=== PATIENT | male | born 1980 | race Caucasian/White ===

== ENCOUNTER 2019-03-18 16:38 | Emergency (ER) | payer OTHER ==
--- NOTE | 2019-03-18 16:47 | PDOC ---
Rapid Medical Evaluation Time Seen by Provider: 03/18/19 16:45 Medical Evaluation: 03/18/19 16:45 I have performed a brief in-person evaluation of this patient. The patient presents with a chief complaint of: resolved dizziness and vomiting Pertinent physical exam findings: no focal findings I have ordered the following: ekg The patient will proceed to the ED for further evaluation. 03/18/19 16:47 Discharge Disposition - Diagnosis Episode of dizziness - Referrals - Patient Instructions - Post Discharge Activity
[2019-03-18 16:48] VITALS: BP 132/68; PULSE 60; TEMP 98.2; BMI 22.5
--- NOTE | 2019-03-18 18:37 | PDOC ---
History of Present Illness - General Chief Complaint: Nausea/Vomiting Stated Complaint: NAUSEA/VOMITING, FELT DIZZY THIS AM Time Seen by Provider: 03/18/19 16:45 History Source: Patient - History of Present Illness Initial Comments: 03/18/19 18:51 Chief complaint: Vomiting and dizziness Patient is a healthy 38-year-old male who states he didn't feel well this morning vomited, started feeling dizzy, had several episodes of vomiting, one episode of diarrhea, no fever. Patient states he feels better now. Patient has no abdominal pain. Patient does not feel dizzy or nauseous now. Patient appears well. GENERAL/CONSTITUTIONAL: No fever, weakness. dizziness HEAD, EYES, EARS, NOSE AND THROAT: No change in vision. No ear pain or discharge. No sore throat. CARDIOVASCULAR: No chest pain RESPIRATORY: No shortness of breath or cough GASTROINTESTINAL: No pain, nausea,+ vomiting, diarrhea, no:constipation GENITOURINARY: No dysuria MUSCULOSKELETAL: No neck or back pain SKIN: No rash NEUROLOGIC: No headache, vertigo, loss of consciousness, or loss of sensation. GENERAL: The patient is awake, alert, and fully oriented, in no acute distress. HEAD: Normal with no signs of trauma. EYES: Pupils equal, round and reactive to light, sclera anicteric, conjunctiva clear. ENT: pharynx: no erythema, no exudate, uvula midline NECK: supple CHEST: clear, nontender, rr ABD: soft, nontender BACK: no tenderness or signs of injury EXTREMITIES: Normal range of motion, no edema. NEUROLOGICAL: Normal speech, normal gait. Cranial nerves II through XII grossly intact, no gross focal abnormalities SKIN: Warm, Dry Past History - Past Medical History Allergies/Adverse Reactions: Allergies Allergy/AdvReac Type Severity Reaction Status Date / Time No Known Allergies Allergy Verified 03/18/19 16:48 COPD: No - Suicide/Smoking/Psychosocial Hx Smoking History: Never smoked Information on smoking cessation initiated: No Hx Alcohol Use: No Drug/Substance Use Hx: No *Physical Exam - Vital Signs Last Vital Signs Temp Pulse Resp BP Pulse Ox 98.2 F 60 19 132/68 100 03/18/19 16:46 03/18/19 16:46 03/18/19 16:46 03/18/19 16:46 03/18/19 16:46 Medical Decision Making - Medical Decision Making 03/18/19 18:53 Healthy 38-year-old male who had vomiting, dizziness and diarrhea earlier today , feels better now, appears well, has no abdominal pain and has benign abdominal exam. No indication for further workup, EKG was canceled, patient will be discharged home with supportive instructions Discussed issues, findings, results, applicable medications and treatments and follow-up. All these were understood and all questions were answered *DC/Admit/Observation/Transfer Diagnosis at time of Disposition: Vomiting Qualifiers: Vomiting type: unspecified Vomiting Intractability: non-intractable Nausea presence: with nausea Qualified Code(s): R11.2 - Nausea with vomiting, unspecified - Discharge Dispostion Disposition: HOME - Referrals Referrals: ON STAFF,NOT [Primary Care Provider] - - Patient Instructions Printed Discharge Instructions: DI for Vomiting -- Adult Additional Instructions: Clear fluids. No vomiting can eat bland foods, no spicy or greasy foods Return to the nearest ER if fever, vomiting or worsening pain Followup with your doctor in one to 2 days - Post Discharge Activity
== END 2019-03-18 18:47 | disposition home or self-care (01) ==
LOC: JER 16:38
DX: R11.2 Nausea with vomiting, unspecified (principal)
CPT/HCPCS: 99281-25

== ENCOUNTER 2019-03-20 18:25 | Emergency (ER) | payer OTHER ==
[2019-03-20 18:30] VITALS: BMI 22.5
--- NOTE | 2019-03-20 19:29 | PDOC ---
History of Present Illness - General Chief Complaint: Lightheaded Stated Complaint: DIZZINESS Time Seen by Provider: 03/20/19 19:29 History Source: Patient Exam Limitations: No Limitations - History of Present Illness Initial Comments: 38 year old male with no PMH presented to ED for intermittent dizziness episodes x5 days. Pt reported since he has returned via flight from [facility], he has had intermittent episodes of room spinning sensation associated with nausea/ vomiting. Pt reported he believes his symptoms are brought on by turning his head to the right, and resolve spontaneously. Pt denied fever, weakness, numbness, tingling, visual changes, speech changes, tinnitus, recent illness. Pt reported he googled his symptoms and believes that he has vertigo. Allergies: NKDA ROS General: denied fever, chills, generalized weakness. HEENT: denied sore throat, rhinorrhea, ear pain, tinnitus. Cardiovascular: denied chest pain, palpitations, syncope, diaphoresis. Respiratory: denied shortness of breath, cough, sputum production, hemoptysis. Gastrointestinal: admitted to nausea, vomiting. denied abdominal pain, diarrhea , constipation, blood in stool. Genitourinary: denied dysuria, increased urinary frequency, hematuria, urinary incontinence, flank pain. Back: denied back pain. Musculoskeletal: denied joint pain, muscle pain, joint swelling. Neurological: admitted to dizziness. denied headache, numbness, tingling, weakness. Integumentary: denied rash, laceration, abrasion. Hematologic/Lymphatic: denied bruising or bleeding. PE Constitutional: Well-nourished, Well-developed, appearing stated age. HEENT: head is normocephalic, atraumatic. EOMI. PERRLA. no posterior pharyngeal erythema.no tonsillar swelling or exudates bilaterally. uvula midline. no peritonsillar swelling, tenderness or abscess. no jaw tenderness or misalignment. bilateral TM pearly sal, no erythema, no bulging, no TM rupture, no pain with palpation of bilateral pinna. no mastoid tenderness to palpation. Neck: supple. Full ROM. Cardiovascular: regular heart rhythm. no murmurs. no pericardial friction rub. Respiratory: clear to auscultation bilaterally. no crackles, rhonchi or wheezing. no stridor. Gastrointestinal: soft, nontender. normal bowel sounds. no rebound, guarding, masses. Extremities: peripheral pulses intact. no lower extremity edema. Neurological: alert. oriented x3. CN2-12 intact. 5/5 strength all extremities. normal ankle plantar flexion. full sensation all extremities and bilateral face. no ataxia. gait normal. Symptoms reproducible with Cost-Guzman Hardeman maneuver with patient looking to the right. no skew to bilateral eyes. Psych: awake, alert, oriented x3. follows commands. answers questions appropriately. Past History - Past Medical History Allergies/Adverse Reactions: Allergies Allergy/AdvReac Type Severity Reaction Status Date / Time No Known Allergies Allergy Verified 03/20/19 18:30 Home Medications: Ambulatory Orders Meclizine HCl [Antivert -] 25 mg PO DAILY PRN #7 tablet 03/20/19 COPD: No - Suicide/Smoking/Psychosocial Hx Smoking History: Never smoked Hx Alcohol Use: No Drug/Substance Use Hx: No *Physical Exam - Vital Signs Last Vital Signs Temp Pulse Resp BP Pulse Ox 98.1 F 64 18 127/65 99 03/20/19 18:28 03/20/19 18:28 03/20/19 18:28 03/20/19 18:28 03/20/19 18:28 Medical Decision Making - Medical Decision Making 38 year old male with above PMH presented to ED for dizziness described as room spinning associated with nausea/vomiting, excaerbated by turning the head to the right. Examination showed reproducible room spinning with Delisa-Guzman Hardeman maneuver (head looking right). Initial Vital Signs Temp Pulse Resp BP Pulse Ox 98.1 F 64 18 127/65 99 03/20/19 18:28 03/20/19 18:28 03/20/19 18:28 03/20/19 18:28 03/20/19 18:28 Afebrile. No tachycardia. No tachypnea. No hypertension. No hypoxia on room air. Labs ordered: none Medications ordered: Meclizine 50 mg PO once Imaging ordered: none 03/20/19 21:10 Pt reported no recurrence of symptoms, requesting DC. Dispo: Discharges F/U: PCP Medications: Meclizine 50 mg PO daily x7 pills PRN Dizziness *DC/Admit/Observation/Transfer Diagnosis at time of Disposition: Vertigo - Discharge Dispostion Disposition: HOME Condition at time of disposition: Improved Decision to Admit order: No - Prescriptions Prescriptions: Meclizine HCl [Antivert -] 25 mg PO DAILY PRN #7 tablet PRN Reason: vertigo - Referrals Referrals: ON STAFF,NOT [Primary Care Provider] - - Patient Instructions Printed Discharge Instructions: DI for Vertigo, DI for Benign Paroxysmal Positional Vertigo Additional Instructions: Take prescribed medications as indicated on label. Follow up with your primary care doctor within 3 days. Your care is not complete until you follow up. Bring all paperwork you were given today to your appointment. Bring all medication bottles you are taking. Return to the Emergency Department for weakness, numbness, tingling, speech changes, gait changes, visual changes, chest pain, shortness of breath, or any other new, worsening or concerning symptoms. - Post Discharge Activity Forms/Work/School Notes: Back to Work
[2019-03-20] MEDS ORDERED: MECLIZINE HCL 25 MG TABLET (FP) PO ONE (19:42)
[2019-03-20] MEDS ORDERED: MECLIZINE HCL 25 MG TABLET (FP) ONE (19:55)
--- NOTE | 2019-03-20 20:25 | PDOC ---
Attending Attestation - Resident Resident Name: Cordell Salasa - ED Attending Attestation I have performed the following: I have examined & evaluated the patient, The case was reviewed & discussed with the resident, I agree w/resident's findings & plan, Exceptions are as noted - HPI HPI: 03/20/19 20:23 38-year-old male complains of intermittent vertigo for the past 5 days since returning from vacation in [place] brought on by head turning movements. Patient denies gait abnormalities, dysarthria/dysphagia or diplopia. - Physicial Exam PE: 03/20/19 20:24 patient is awake and alert, well-nourished, in no distress Cranial nerves II through XII grossly intact; motor is 5 of 54; no pronation drift; Finger to nose is normal bilaterally; rapid alternating movements are intact bilaterally, [id number] is normal bilaterally. [place] exam is within normal limit. cta rrr no nystagmus - Medical Decision Making 03/20/19 20:25 patient is a 38-year-old male who presents with intermittent vertigo for the past 5 days. There is no evidence of posterior circulation insufficiency. Peripheral cause is likely. Will attempt a trial of meclizine. Likely discharge.
[2019-03-20 21:19] VITALS: BP 116/52; PULSE 54; TEMP 98
== END 2019-03-20 21:18 | disposition home or self-care (01) ==
LOC: JER 18:25
DX: R42 Dizziness and giddiness (principal)
CPT/HCPCS: 99281-25

== ENCOUNTER 2021-08-15 10:23 | Emergency (ER) | payer OTHER ==
[2021-08-15 10:39] VITALS: BP 122/76; PULSE 67; TEMP 97.7; BMI 23.2
[2021-08-15] MEDS ORDERED: ACETAMINOPHEN 500 MG TABLET (FP) ONE (11:52)
[2021-08-15] MEDS ORDERED: ACETAMINOPHEN 500 MG TABLET (FP) PO ONE (11:52)
== END 2021-08-15 12:17 | disposition home or self-care (01) ==
LOC: JER 10:23
DX: R19.7 Diarrhea, unspecified (principal); R10.9 Unspecified abdominal pain
CPT/HCPCS: 99283-25

== ENCOUNTER 2023-02-19 07:22 | Day surgery (SDC) | payer OTHER ==
[2023-02-19] MEDS ORDERED: morphine CARPU-JECT 4 MG/1 ML DISP.SYRIN IVPUSH ONE (07:38)
[2023-02-19] MEDS ORDERED: SODIUM CHLORIDE 1,000 ML IV STA (07:38)
[2023-02-19] MEDS ORDERED: ONDANSETRON 4 MG/2 ML VIAL IVPUSH ONE (07:38)
[2023-02-19] MEDS ORDERED: morphine SULFATE 4 MG/ML VIAL ONE (07:46)
[2023-02-19] MEDS ORDERED: ONDANSETRON 4 MG/2 ML VIAL ONE ×2 (07:46→13:41)
[2023-02-19 08:26] LABS: BASO % 0.9 % (0-2.0); EOS % 1.8 % (0-4.5); HEMATOCRIT 43.9 % (35.4-49); LYMPH % 26.7 % (8-40); MCH 27.1 pg (25.7-33.7); MCHC 34.2 g/dl (32.0-35.9); MEAN CELL VOLUME 79.3 fl (80-96); MEAN PLT VOLUME 8.2 fl (7.5-11.1); MONO % 5.9 % (3.8-10.2); NEUT % 64.7 % (42.8-82.8); PLATELET COUNT 281 10^3/uL (134-434); RBC 5.54 M/mm3 (4.00-5.60); RDW 13.7 % (11.9-15.9); WHITE BLOOD COUNT 6.2 K/mm3 (4.0-10.0)
[2023-02-19 08:30] LABS: INR 1.01 (0.83-1.09); PROTHROMBIN TIME (PATIENT) 11.7 SEC (9.7-13.0)
[2023-02-19 09:14] LABS: POTASSIUM 3.9 mmol/L (3.5-5.1)
[2023-02-19 09:19] LABS: ALBUMIN 3.7 g/dl (3.4-5.0)
[2023-02-19 09:20] LABS: CALCIUM 9.1 mg/dL (8.5-10.1)
[2023-02-19 09:21] LABS: BLOOD UREA NITROGEN 17.4 mg/dL (7-18)
[2023-02-19 09:22] LABS: CREATININE 1.3 mg/dL (0.55-1.3)
[2023-02-19 09:23] LABS: BILIRUBIN,TOTAL 0.6 mg/dL (0.2-1); LACTIC ACID 2.4 mmol/L (0.4-2.0)
[2023-02-19 09:39] LABS: URINE APPEARANCE CLEAR; URINE BILIRUBIN NEGATIVE (NEGATIVE); URINE COLOR YELLOW; URINE GLUCOSE (UA) NEGATIVE (NEGATIVE); URINE KETONE NEGATIVE (NEGATIVE); URINE LEUK ESTERASE NEGATIVE (NEGATIVE); URINE NITRITE NEGATIVE (NEGATIVE); URINE PROTEIN NEGATIVE (NEGATIVE)
[2023-02-19] MEDS ORDERED: HYDROmorphone HCl 2 MG/ML VIAL IVPB ONE (09:57)
[2023-02-19] MEDS ORDERED: HYDROmorphone HCl 2 MG/ML VIAL ONE (09:58)
[2023-02-19] MEDS ORDERED: CEFTRIAXONE 1 GM in DEXTROSE 5%-WATER - 100 ML IVPB ONE (10:40)
[2023-02-19] MEDS ORDERED: CEFTRIAXONE 1 GM/50 ML BAG ONE (12:01)
[2023-02-19] MEDS ORDERED: ONDANSETRON 4 MG/2 ML VIAL IVPUSH PRN ×2 (13:13→15:07)
[2023-02-19] MEDS ORDERED: PROMETHAZINE HCL 25 MG/1 ML VIAL IVPB PRN (13:13)
[2023-02-19] MEDS ORDERED: ROCURONIUM BROMIDE 50 MG/5 ML SYRINGE ONE (13:15)
[2023-02-19] MEDS ORDERED: MIDAZOLAM HCL 2 MG/2 ML SINGLE DOSE VIAL ONE (13:15)
[2023-02-19] MEDS ORDERED: LACTATED RINGERS SOLUTION 1,000 ML IV SCH (13:15)
[2023-02-19] MEDS ORDERED: PROPOFOL 20 ML ONE (13:15)
[2023-02-19] MEDS ORDERED: LIDOCAINE HCL/PF 2% SDV 5ML VIAL ONE (13:17)
[2023-02-19] MEDS ORDERED: SODIUM CHLORIDE 0.9% P/F 10 ML VIAL IJ ONE (13:17)
[2023-02-19] MEDS ORDERED: ceFAZolin SODIUM 1 GM VIAL ONE (13:17)
[2023-02-19] MEDS ORDERED: ceFAZolin SODIUM 1 GM VIAL IVPB ONE (13:40)
[2023-02-19] MEDS ORDERED: DEXAMETHASONE SOD PHOSPHATE 4 MG/1 ML VIAL ONE (13:41)
[2023-02-19] MEDS ORDERED: LIDOCAINE HCL 1%, 10 MG/ML (50 mL VIAL) INF ONE (13:53)
[2023-02-19] MEDS ORDERED: BUPIVACAINE HCL/PF 0.5% (5 MG/ML) 30 ML VIAL IJ ONE (13:53)
[2023-02-19] MEDS ORDERED: ACETAMINOPHEN INJECTION 100 ML IVPB ONE (14:05)
[2023-02-19] MEDS ORDERED: KETOROLAC TROMETHAMINE 30 MG/1 ML VIAL ONE (14:10)
[2023-02-19] MEDS ORDERED: GLYCOPYRROLATE 0.2 MG/1 ML VIAL ONE (14:22)
[2023-02-19] MEDS ORDERED: NEOSTIGMINE METHYLSULFATE 0.5 MG/1 ML - 10 ML MDV ONE (14:23)
[2023-02-19] MEDS ORDERED: oxyCODONE HCL 5 MG TABLET PO PRN ×2 (15:07)
[2023-02-19 17:15] VITALS: BMI 22.2
[2023-02-19] MEDS ORDERED: ACETAMINOPHEN 500 MG TABLET (FP) PO PRN (23:00)
[2023-02-20 04:03] VITALS: RESP 16
[2023-02-20] MEDS ORDERED: ENOXAPARIN NA (PORCINE) 40 MG/0.4 ML DISP.SYRIN SQ SCH (10:00)
[2023-02-20 11:36] VITALS: BP 117/69; PULSE 64; TEMP 98.1
== END 2023-02-20 13:00 | disposition home or self-care (01) ==
LOC: JER 07:22 → JASUSAT 11:25 → UNDOADMIN 11:25 → JERBED 11:25 → J8W 16:32 → JERBED 16:32 → J8W 17:35 → JASUSAT 02-20 13:00
PROVIDERS: ATTEND Internal Medicine
PROC: 0FT44ZZ Resection of Gallbladder, Percutaneous Endoscopic Approach (ICD-10-PCS; principal; 2023-02-19 12:30)
DX: K80.10 Calculus of gallbladder with chronic cholecystitis without obstruction (principal)
CPT/HCPCS: 36415; 76705-TC; 80053; 81003; 82962; 83605; 83690; 85025; 85610; 86850; 86900; 86901; 88304-TC; 93005; 93010; 94010; 94760; 99285-25